=== PATIENT | male | born 1990 | race Caucasian/White ===

== ENCOUNTER → 2019-12-23 14:20 | Outpatient (BNVA) | payer SELFPAY | PROVIDERS: Visit Provider Nurse Practitioner | DX: R19.7 Diarrhea, unspecified (principal) | CPT/HCPCS: 81003 ==

== ENCOUNTER 2022-08-31 11:25 | Emergency (ER) | payer SELFPAY ==
[2022-08-31 11:36] VITALS: BP 121/90; PULSE 94; RESP 14; TEMP 37.2; O2SAT 96; BMI 30.4
--- NOTE | 2022-08-31 11:50 | ED_ITS ---
HPI - General Adult General: Chief complaint: General Medical Stated complaint: Body aches Time Seen by Provider: 08/31/22 11:50 History of Present Illness: Mr. Alejandar is a 32-year-old gentleman without significant past medical history presents to the emergency department due to body aches and generalized malaise with night sweats. He reports an episode of severe joint pain a few months ago which lasted approximately 1 week. When he returned to [facility] he presented to [facility] and they were concerned that he may have rheumatoid arthritis though given that he was not currently have symptoms did not currently testing. Advised him to return if he develops symptoms again. Onset of symptoms was approximately 2 days ago and subacute. He endorses headache, back pain, night sweats starting last night. Denies other focal infectious symptoms. Intensity symptoms is moderate. Course has persisted. No other specific changes in health, exacerbating, or alleviating factors identified. Onset (ago): day(s) Severity: moderate Relieving factors: none Exacerbating factors: none Associated symptoms: Reports fevers/chills, headache(s), malaise and other Review of Systems General: Reports: 10 or more systems reviewed and unremarkable except in HPI and below Const: Reports: malaise Neuro: Reports: headache(s) PFSH ED PFSH: Medical History No significant past medical history Surgical History No significant past surgical history Social History Smoking and tobacco status: current every day smoker Physical Exam Const: COMMON NORMALS: alert GENERAL APPEARANCE: cooperative and well developed HENMT: COMMON NORMALS: normocephalic and atraumatic HEAD & SCALP: normocephalic and atraumatic Eye: COMMON NORMALS: conjunctivae normal CONJUNCTIVA: Yes conjunctivae normal SCLERA: sclerae normal Neck/C-Spine: COMMON NORMALS: supple GENERAL: Yes trachea midline Resp: COMMON NORMALS: normal respiratory effort and clear to auscultation bilaterally EFFORT & INSPECTION: Yes able to speak in complete sentences AUSCULTATION: clear to auscultation bilaterally Cardio: COMMON NORMALS: regular rate and regular rhythm RATE: regular rate RHYTHM: regular rhythm GI: COMMON NORMALS: Soft to palpation PALPATION: Yes Soft to palpation and No Tenderness to palpation present (GI) Extremity: GENERAL: Yes normal exam except as noted and No edema Neuro: COMMON NORMALS: moves all extremities SENSORIUM/ORIENTATION: Yes merlin rt and No Orientation impaired Psych: COMMON NORMALS: mental status grossly normal and Normal thought process present THOUGHT PROCESS: Normal thought process present Course Vital Signs: Vital signs: Vital Signs Temperature 98.9 F 08/31/22 12:36 Pulse Rate 94 08/31/22 12:36 Respiratory Rate 14 08/31/22 12:36 Blood Pressure 121/90 08/31/22 12:36 Pulse Oximetry 96 08/31/22 12:36 Oxygen Delivery Me thod 08/31/22 12:36 [facility] - General Adult Medical Decision Making 32-year-old gentleman presenting with illness. Endorses neck pain however no meningismus on exam and no neurologic deficits.. Vital signs satisfactory patient is nontoxic. Patient primarily concerned about possible rheumatoid or other rheumatologic disorder. Laboratory studies notable for no leukocytosis, normal hemoglobin. Metabolic panel without acute derangement. CRP minimally elevated but ESR is normal. Hematuria noted and discussed with patient. Upon reassessment patient improved with fluids and Toradol. Satisfactory for outpatient management. The results of ED evaluation were discussed with the patient including prescriptions and/or symptomatic cares (if applicable) including appropriate and responsible use, followup plan, and return precautions. The patient verbalized understanding and felt safe for discharge. Medical Records I reviewed the patient's medical records. Lab Data I reviewed the patient's lab results. : 08/31/22 12:10 08/31/22 12:10 Laboratory Results WBC 5.0 10^3/uL (4.0-10.0) 08/31/22 12:10 RBC 5.52 10^6/uL (4.1-5.3) H 08/31/22 12:10 Hgb 14.5 g/dL (11.7-16.6) 08/31/22 12:10 Hct 43.9 % (42.0-52.0) 08/31/22 12:10 MCV 79.5 fl (80-94) L 08/31/22 12:10 MCH 26.3 pg (28.0-34.0) L 08/31/22 12:10 MCHC 33.0 g/dL (30.0-36.0) 08/31/22 12:10 RDW 13.8 % (12.1-15.1) 08/31/22 12:10 Plt Count 316 10^3/cmm (130-400) 08/31/22 12:10 MPV 10.1 fL (7.4-10.4) 08/31/22 12:10 Neut % (Auto) 56.8 % 08/31/22 12:10 Lymph % (Auto) 23.6 % 08/31/22 12:10 Bureau % (Auto) 18.0 % 08/31/22 12:10 Eos % (Auto) 0.6 % 08/31/22 12:10 Baso % (Auto) 0.4 % 08/31/22 12:10 Neut # (Auto) 2.85 10^3/uL (1.8-7.7) 08/31/22 12:10 Lymph # (Auto) 1.2 10^3/uL (0.8-4.8) 08/31/22 12:10 Bureau # (Auto) 0.9 10^3/uL (0.2-0.9) 08/31/22 12:10 Eos # (Auto) 0.0 10^3/uL (0.0-0.8) 08/31/22 12:10 Baso # (Auto) 0.0 10^3/uL (0.0-0.1) 08/31/22 12:10 Nucleated RBC % (auto) 0 % 08/31/22 12:10 Nucleated RBCs # 0.0 /100WBC 08/31/22 12:10 ESR 4 mm/hr (0-10) 08/31/22 12:10 Sodium 136 mmol/L (136-145) 08/31/22 12:10 Potassium 4.1 mmol/L (3.5-5.1) 08/31/22 12:10 Chloride 101 mmol/L (98-107) 08/31/22 12:10 Carbon Dioxide 25 mmol/L (22-29) 08/31/22 12:10 Anion Gap 14.1 (5-19) 08/31/22 12:10 BUN 12 mg/dL (6-20) 08/31/22 12:10 Creatinine 1.0 mg/dL (0.7-1.2) 08/31/22 12:10 GFR Calculation 85.5 mL/min (90-130) L 08/31/22 12:10 Glucose 87 mg/dL (65-115) 08/31/22 12:10 Calculated Osmolality 281 mOsm/kg (285-295) L 08/31/22 12:10 Calcium 9.2 mg/dL (8.5-10.5) 08/31/22 12:10 C-Reactive Protein 9.1 mg/L (0.0-4.9) H 08/31/22 12:10 Urine Color Yellow (Yellow) 08/31/22 14:09 Urine Appearance Clear (CLEAR) 08/31/22 14:09 Urine pH 6 (5-7) 08/31/22 14:09 Ur Specific [place] 1.010 (1.005-1.030) 08/31/22 14:09 Urine Protein Neg (Negative) 08/31/22 14:09 Urine Glucose (UA) Norm (Normal) 08/31/22 14:09 Urine Ketones Negative (Negative) 08/31/22 14:09 Urine Blood 2+ (Negative) H 08/31/22 14:09 Urine Nitrate Negative (Negative) 08/31/22 14:09 Urine Bilirubin Neg (Negative) 08/31/22 14:09 Urine Urobilinogen Norm mg/dL (Negative) 08/31/22 14:09 Ur Leukocyte Esterase Negative (Negative) 08/31/22 14:09 Urine RBC 5-10 /hpf (0-2) H 08/31/22 14:09 Urine WBC None /hpf (0-5) 08/31/22 14:09 Ur Squamous Epith Cells None /hpf (0-5) 08/31/22 14:09 Amorphous Sediment Not Reportable 08/31/22 14:09 Urine Bacteria Trace /hpf (NONE) 08/31/22 14:09 Lyme Ab (Western Blot) <0.90 index 08/31/22 12:10 Discharge Plan Discharge Patient Disposition: Home Clinical Impression: Acute viral syndrome, Hematuria Condition: Stable Prescriptions: No Action No Known Home Medications Discharge Orders: Discharge ED (Routine); Ordered 08/31/22 Ordered By: Jad Hand Referrals: Aris White MD [Primary Care Provider] - Patient Instructions: Hematuria (ED), Viral Syndrome (ED) Activity Restrictions/Additional Instructions: Thank you for visiting the emergency department. You were seen and evaluated for headaches with fever and muscle aches. The exact cause of your symptoms is unclear though does not appear to need hospitalization at this time. I will message case management for follow-up. You may use [id number] medications for symptoms however please do not exceed the daily recommended dosages and please keep in mind that many namebrand medications contain the same active ingredients. Return to the emergency department for uncontrolled symptoms or anything else that you are concerned about a feel needs emergency department evaluation. As discussed there was a small amount of blood in your urine, I recommend repeat urinalysis by primary care provider and further evaluation based on results. You may need ultrasound/CT/urology follow-up if blood in urine persists. Coding Level of Care Code ED Exchange Mechanic for Brandee Fwd Exam Comprehensive
[2022-08-31] MEDS: ketorolac 30 mg/mL INJ 15 MG IVP (12:30)
[2022-08-31] MEDS: sodium chloride 0.9% 1,000 ML 999 ML IV (12:31)
[2022-08-31 12:36] VITALS: BP 121/90; PULSE 94; RESP 14; TEMP 37.2; O2SAT 96
[2022-08-31 12:48] LABS: Basophils % 0.4 %; Eosinophils % 0.6 %; Hematocrit 43.9 % (42.0-52.0); Hemoglobin 14.5 g/dL (11.7-16.6); Lymphocytes # 1.2 10^3/uL (0.8-4.8); Lymphocytes % 23.6 %; Mean Corpuscular Hemoglobin 26.3 pg (28.0-34.0); Mean Corpuscular Volume 79.5 fl (80-94); Mean Platelet Volume 10.1 fL (7.4-10.4); Monocytes # 0.9 10^3/uL (0.2-0.9); Neutrophils # 2.85 10^3/uL (1.8-7.7); Neutrophils % 56.8 %; Nucleated Red Blood Cells % 0 %; Platelet Count 316 10^3/cmm (130-400); Red Blood Count 5.52 10^6/uL (4.1-5.3); Red Cell Distribution Width 13.8 % (12.1-15.1)
[2022-08-31 13:11] LABS: Anion Gap 14.1 (5-19); Blood Urea Nitrogen 12 mg/dL (6-20); Calcium 9.2 mg/dL (8.5-10.5); Carbon Dioxide 25 mmol/L (22-29); Chloride 101 mmol/L (98-107); Glomerular Filtration Rate 85.5 mL/min (90-130); Glucose 87 mg/dL (65-115); Osmolality Calculated 281 mOsm/kg (285-295); Potassium 4.1 mmol/L (3.5-5.1); Sodium 136 mmol/L (136-145)
[2022-08-31 14:24] LABS: Erythrocyte Sedimentation Rate 4 mm/hr (0-10)
[2022-08-31 14:26] LABS: Bilirubin Urine Neg (Negative); Blood Urine 2+ (Negative); Glucose Urine UA Norm (Normal); Ketones Urine Negative (Negative); Leukocyte Esterase Urine Negative (Negative); Nitrate Urine Negative (Negative); Protein Urine Neg (Negative); Urine Appearance Clear (CLEAR); Urine Color Yellow (Yellow); Urobilinogen Urine Norm (Negative); pH Urine 6 (5-7)
[2022-08-31 14:27] LABS: Add Urine Culture? No; Add Urine Microscopic? YES; Bacteria Urine TRACE /hpf
[2022-08-31 14:27] LABS: C Reactive Protein 9.1 mg/L (0.0-4.9)
[2022-09-02 10:57] LABS: Lyme AB Screen <0.90 index
--- NOTE | 2022-09-05 09:49 | DCPLANNER ---
manager environmental health had message to speak with patient about getting established with a primary care physician. manager environmental health called phone number [phone], unable to speak with patient or leave a voicemail for patient.
[2022-09-05 17:03] LABS: RMSF IGG NOT DETECTED; RMSF IGM NOT DETECTED
[2022-09-05 21:47] LABS: E. Chaffeensis AB IGG <1:64; E. Chaffeensis AB IGM <1:20
== END 2022-08-31 14:58 | disposition home or self-care (01) ==
PROVIDERS: Emergency Provider Emergency Medicine; PCP Urology
DX: B34.9 Viral infection, unspecified (principal); R31.9 Hematuria, unspecified
CPT/HCPCS: 36415; 80048; 81001; 85025; 85651; 86140; 86618; 86666; 86757; 87040; 96374; 99284; J1885; J7030

== ENCOUNTER 2023-03-01 16:21 | Emergency (ER) | payer SELFPAY ==
[2023-03-01 16:31] VITALS: BP 141/82; PULSE 103; RESP 16; TEMP 36.9; O2SAT 92
[2023-03-01] MEDS: famotidine 20 mg Tablet 40 MG PO (17:57)
[2023-03-01] MEDS: dexamethasone 10 mg/mL INJ 20 MG IM (17:57)
[2023-03-01] MEDS: loratadine 10 mg Tablet PO (18:00)
--- NOTE | 2023-03-01 18:03 | ED_ITS ---
HPI - Skin/Abscess/Foreign Bdy General: Chief complaint: Skin/Abscess/Foreign Body Stated complaint: insect bite Time Seen by Provider: 03/01/23 17:17 Source: patient Mode of arrival: ambulatory Limitations: no limitations History of Present Illness: Patient presents emergency department today for evaluation treatment of concerns for spider bite on his lower lip. Patient states that he has recently from his girlfriend and has moved back to his house. He states no one has lived there for quite some time and, was woken up approximately 5:00 this morning. He states he saw a brown recluse spider and, after couple of hours started having discomfort on the left lateral inferior portion of his lower lip. Patient had spreading swelling extending from the left side to the right side over the next couple of hours. Patient did have pictures which confirms the swelling extending from the left side across to the right side and affecting the lower lip only. He states he took 3, 25 mg Benadryl couple hours ago and had noticeable improvement of the lower lip swelling. He denies any tongue swelling or sensation of difficulty swallowing or breathing. He reports upper respiratory symptoms about a week ago with nasal congestion and sore throat and low-grade fever but, states the last day or so he has had noticeable improvement of the symptoms. 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 Review of Systems General: Reports: 10 or more systems reviewed and unremarkable except in HPI and below PFSH ED PFSH: Medical History No significant past medical history Surgical History No significant past surgical history Social History Smoking and tobacco status: current every day smoker Physical Exam Const: COMMON NORMALS: no acute distress, patient oriented x3 and alert HENMT: OTHER: Patient has obvious left lower lip swelling. No swelling of the upper lip. Tongue is not swollen and there is no swelling of the floor of the mouth. Airway is patent without signs of soft tissue swelling on the soft palate. No signs of mucosal ulcers on the lip. No signs of facial swelling. Eye: COMMON NORMALS: Equal, round and reactive pupils present, EOMs intact bilaterally and conjunctivae normal CONJUNCTIVA: Yes conjunctivae normal PUPIL: Yes Equal, round and reactive pupils present Neck/C-Spine: COMMON NORMALS: no JVD Lymph: LYMPHATIC: no lymphadenopathy noted Resp: COMMON NORMALS: normal respiratory effort, No retractions and No use of accessory muscles OTHER: No signs of respiratory distress. No stridor or wheezing. Cardio: COMMON NORMALS: no JVD and regular rate RATE: regular rate : COMMON NORMALS: Yes no CVA tenderness BLADDER/KIDNEY EXAM: Yes no CVA tenderness Back/Pelvis: COMMON NORMALS: no CVA tenderness, thoracic and lumbar spine normal to inspection and thoraco-lumbar ROM normal Extremity: COMMON NORMALS: normal to inspection, full ROM and no pedal edema Neuro: COMMON NORMALS: patient oriented x3 SENSORIUM/ORIENTATION: Yes alert Skin: COMMON NORMALS: no rashes or lesions noted and turgor normal GENERAL SKIN EXAM: no rashes or lesions noted and turgor normal Course Vital Signs: Vital signs: Vital Signs Temperature 98.5 F 03/01/23 16:31 Pulse Rate 103 H 03/01/23 16:31 Respiratory Rate 16 03/01/23 16:31 Blood Pressure 141/82 03/01/23 16:31 Pulse Oximetry 92 03/01/23 16:31 Oxygen Delivery Me thod Room Air 03/01/23 16:31 MDM - Skin/Abscess/Foreign Bdy Medicial Decision Making Patient presents to the emergency department today for concerns of a spider bite. Patient states he saw the brown recluse spider by his face at approximately 5:00 this morning. He reports progressive swelling of his left lower lip since that time. Patient did have pictures of his lip swelling and, reports that after taking 3, 25 mg Benadryl's he had improvement. Patient's evaluation today still reveals swelling of the lower lip but, it is noticeably improved from a photo he had from a couple hours ago. Patient has no other signs of angioedema affecting the tongue or the soft palate. He shows no signs of respiratory distress or wheezing. However, I did discuss with the patient my concerns that this is possibly due to something other than a spider bite but, are willing to treat with antibiotics given that he is leaving the state tomorrow and there is risk for cellulitis secondary to brown recluse bites. However, patient was treated here in the emergency department with steroids, H2 david, and antihistamines with continued treatment sent to the pharmacy on his behalf. I also provided him a prescription for an EpiPen with instructions for him to become comfortable with administering the medication to himself by going over the package insert as he will be leaving town tomorrow. Patient was given instructions that if he needs to administer the medication to himself he needs to call 911 and be seen through the emergency department wherever he is at. I also requested a primary care appointment to get him established for routine care as he does not currently have any primary care here in the area. Differential Diagnosis Likely abscess of skin or subcutaneous tissue, viral exanthem, urticaria, allergic reaction to drug, cellulitis, insect bites and contact dermatitis Discharge Plan Discharge Patient Disposition: Home Clinical Impression: Swollen lip Condition: Stable Prescriptions: New doxycycline hyclate 100 mg tablet,delayed release (DR/EC) 100 mg PO Q12H 7 Days Qty: 14 0RF Pepcid 20 mg tablet 20 mg PO BID 5 Days Qty: 10 0RF Allergy Relief (loratadine) 10 mg tablet 10 mg PO DAILY Qty: 7 0RF epinephrine 0.3 mg/0.3 mL auto-injector 0.3 mg IM Q10M PRN (Reason: anaphylaxis) Qty: 2 0RF Rx Instructions: for 2 doses prednisone 20 mg tablet 20 mg PO BID 5 Days Qty: 10 0RF Discharge Orders: Discharge ED (Routine); Ordered 03/01/23 Ordered By: Tata Prado Discharge Diet: Usual diet Discharge Activity: Increase activity as tolerated Patient Instructions: Brown Recluse Spider Bite (ED), Angioedema (ED) Activity Restrictions/Additional Instructions: Given your description of the brown recluse spider you saw prior to onset of your lip swelling, we can treat for concerns of suspected brown recluse bite. As we discussed, envenomation often occurs with brown recluse and, venom can cause surrounding skin cell . This can cause an ulceration of the skin. If you notice this developing you should be seen and reevaluated. Unfortunately, they also cause quite a bit of skin infection such as staph and strep. We will start you on an antibiotic today. However, I also have concerns given the amount of swelling affecting your lower lip. This could also be reminiscent of an angioedema side effect or hypersensitivity reaction which can progress to involve both your upper and lower lip, tongue, mouth, or throat. If these occur, you can often have difficulty breathing and becomes an emergency. We are also treating you with steroids, H2 david, and other antihistamines to help combat your lip swelling. Continue taking the Benadryl you have with you every 6 hours for the next few days to help control symptoms. Given that you are leaving town tomorrow, I am also prescribing you an EpiPen. I recommend you read over the informational handout to become comfortable with administering yourself with the epinephrine should you have sudden onset of worsening lip, tongue, or throat swelling or any difficulty breathing. If you develop the symptoms you need to be seen in the emergency department immediately. If necessary, puller through, administer your EpiPen, call 911. I have requested a follow-up appointment with a primary care doctor to get you established to have regular, routine care. Coding Level of Care Code ED Grapple Yarder Operator for Brandee Walter
[2023-03-01 18:27] VITALS: BP 132/86; PULSE 95; RESP 16; O2SAT 92
--- NOTE | 2023-03-03 14:32 | DCPLANNER ---
Case danny had message to speak with patient about getting established with a primary care physician. eye clinic manager unable to speak with patient at this time.
--- NOTE | 2023-03-07 10:35 | DCPLANNER ---
manager therapy called patient due to no primary care physician - no answer at this time.
== END 2023-03-01 18:30 | disposition home or self-care (01) ==
PROVIDERS: Emergency Provider Physician Assistant
DX: M79.89 Other specified soft tissue disorders (principal); F17.210 Nicotine dependence, cigarettes, uncomplicated
CPT/HCPCS: 96372; 99284; J1100